=== PATIENT | female | born 1970 | race Caucasian/White ===

== ENCOUNTER 2022-03-26 01:05 | Day surgery (SDC) | payer OTHER, SELFPAY ==
[2022-01-26 13:17] VITALS: BMI 19.3
--- NOTE | 2022-03-15 12:27 | PC.NURSE ---
Completed pre-procedure phone call for rescheduled procedure. Updated patient with new date and times for arrival. Patient denies any changes to health history or medications. No questions at this time.
[2022-03-26 06:35] VITALS: BP 129/83; PULSE 99; RESP 22; TEMP 36.8; O2SAT 97; BMI 19.1
--- NOTE | 2022-03-26 06:45 | P.PNAN_ITS ---
Anes - Initial Pre Proc Eval Procedure: Operation Date: 03/26/22 07:30 Proposed Procedures p Screening Colonoscopy - Torsten Chapman MD Date/Time: 03/26/22 06:45 Surgeon: Torsten Chapman MD Pre Op Diagnosis: neoplasm screening Patient Data Age: 51 Gender: F Height: 1.68 m Weight: 53.6 kg Last Vital Signs Temp 36.8 C 03/26/22 06:35 Pulse 99 03/26/22 06:35 Resp 22 H 03/26/22 06:35 BP 129/83 03/26/22 06:35 Pulse Ox 97 03/26/22 06:35 Allergies Allergy/AdvReac Type Severity Reaction Status Date / Time clindamycin Allergy Unknown Rash Verified 03/26/22 06:33 Home Medications Medication Instructions Recorded Confirmed Type amlodipine 5 mg PO DAILY 01/26/22 01/26/22 History aspirin 81 mg PO DAILY 01/26/22 01/26/22 History isosorbide mononitrate 30 mg PO DAILY 01/26/22 01/26/22 History rosuvastatin 20 mg PO DAILY 01/26/22 01/26/22 History ursodiol 750 mg PO DAILY 01/26/22 01/26/22 History Patient hx anesthesia problems: none Family hx anesthesia problems: none Results Review: All pre-operative results and documents have been reviewed as part of the pre-operative evaluation. FORMERLY [facility], [facility] Past Medical History Medical History (Updated 03/26/22 @ 06:50 by Anibal Matos MD) HTN (hypertension) Hyperlipidemia Social History Social History Living arrangements: with family Anes - Eval Final PreProcedure Day of Procedure 03/26/22 06:45 Patient weight: normal Heart: regular rate and rhythm Lungs: clear to auscultation Airway: Mallampati scale class III, special considerations poor opening and other (h/o difficult intubation) Neurological: alert and oriented Last oral intake: >/= 8 hours ASA classification: II Emergent: no Anesthetic plan: proceed Anesthesia type and monitoring: general GIVS and standard monitoring Results Review: All pre-operative results and documents have been reviewed as part of the pre-operative evaluation. Informed Consent: The patient's anesthetic plan and its attendant risks and benefits were discussed with the patient/family/POA. Questions were solicited and answers provided to the satisfaction of the patient/family/POA.
[2022-03-26] MEDS: LACTATED RINGERS 1,000 ML 150 ML IV CONT (06:50)
--- NOTE | 2022-03-26 07:27 | PM.HPGS ---
History of Present Illness History of Present Illness Consent: Risks, benefits, and alternatives have been discussed and questions answered. Patient agrees to proceed with procedure. Chief complaint: neoplasm screening Narrative: Jeny Mccartney is a 51 year old female referred for colon cancer screening. This is her 1st colonoscopy. Her mother has had a polyp removed but otherwise family history is unremarkable. Review of Systems Review of Systems: All systems reviewed & are unremarkable except as noted in HPI and below PMFSH Past Medical History Medical History HTN (hypertension) Hyperlipidemia Social History Social History Living arrangements: with family Meds Home Medications and Allergies Home Medications Medication Instructions Recorded Confirmed Type amlodipine 5 mg PO DAILY 01/26/22 01/26/22 History aspirin 81 mg PO DAILY 01/26/22 01/26/22 History isosorbide mononitrate 30 mg PO DAILY 01/26/22 01/26/22 History rosuvastatin 20 mg PO DAILY 01/26/22 01/26/22 History ursodiol 750 mg PO DAILY 01/26/22 01/26/22 History Allergies Allergy/AdvReac Type Severity Reaction Status Date / Time clindamycin Allergy Unknown Rash Verified 03/26/22 06:33 Vital Signs Vital Signs - 24 hr 03/26/22 06:35 Temperature 36.8 C Pulse Rate 99 Respiratory Rate 22 H Blood Pressure 129/83 Pulse Oximetry 97 Exam Const: General: alert Orientation/consciousness: patient oriented x3 Resp: Auscultation: clear to auscultation bilaterally Cardio: Rhythm: regular rhythm GI: GI Palp: Yes Soft to palpation and No Tenderness to palpation present (GI) Neuro: General: patient oriented x3 Assessment and Plan Assessment and plan (1) Colon cancer screening: Code(s): Z12.11 - Encounter for screening for malignant neoplasm of colon Status: Acute Assessment and Plan: Colonoscopy with possible biopsy or polypectomy or cautery or injection of substances.
[2022-03-26 07:48] VITALS: BP 116/80; PULSE 76; RESP 14; O2SAT 100
[2022-03-26 07:58] VITALS: BP 115/80; PULSE 76; RESP 20; O2SAT 100
[2022-03-26 08:08] VITALS: BP 129/86; PULSE 72; RESP 16; O2SAT 100
== END 2022-03-26 08:23 | disposition home or self-care (01) ==
PROVIDERS: PCP Internal Medicine; Visit Provider Internal Medicine Gastroenterology
PROC: 0DJD8ZZ Inspection of Lower Intestinal Tract, Via Natural or Artificial Opening Endoscopic (ICD-10-PCS; CPT 45378; principal; 2022-03-26 07:30)
DX: Z12.11 Encounter for screening for malignant neoplasm of colon (principal); I10 Essential (primary) hypertension; E78.5 Hyperlipidemia, unspecified
CPT/HCPCS: 45378; J2704; J7120

== ENCOUNTER 2025-07-05 02:08 | Day surgery (SDC) | payer OTHER, SELFPAY ==
[2025-06-28 09:03] VITALS: BMI 18.6
--- NOTE | 2025-06-28 09:11 | PC.NURSE ---
Report to the Outpatient Waiting Room, entrance under the green pavilion located off [facility], at time _1000_ on date _[id number]_. Planned Procedure Time: _1200_.? Time changes happen often and if your time is changed the preop area will call you the afternoon before. - You and your visitor will be asked to self-screen and do not enter if you have any COVID symptoms. Please call surgeon if you need to reschedule. - A mask is optional within the hospital at this time. Patients may have clear liquids (water, carbonated beverages, clear teas, apple juice) until 3 hours prior to surgery with a maximum of 20 ounces. - No food from midnight until time of surgery and no smoking, or chewing tobacco (or any form of nicotine). No chewing gum, candy or mints. Take only the following medications with a SIP of water on the morning of surgery: __Trelegy, Amlodipine, Isosorbide and Thyroid DO NOT STOP ANY OF YOUR OTHER PRESCRIPTION MEDICATIONS PRIOR TO SURGERY EXCEPT THE FOLLOWING Hold all vitamins and supplements for 3 days per anesthesiologist. Medications to discontinue per physician Date to take last dose Please no make-up, nail tongan, hairspray, perfume, deodorant, or body powder the day of surgery.? No jewelry (including any body piercings) or valuables the day of surgery, leave them at home.? Please take a shower or bath the night before, or the morning of, surgery with an antibacterial soap.? Wear comfortable, loose fitting clothing.? - Jewelry must be removed prior to entering the operating room.? Rings and piercings that are not removed may be cut off. - The hospital will not accept responsibility for valuables.? - Please leave all valuables, including medications, at home the day of surgery. If you are going home after surgery, a licensed vending route driver must drive you home.? - NO public transportation without another adult if you receive anesthesia. - We recommend that an adult stay with you for 24 hours following discharge. - We also recommend that you do not drive, make important decision, drink alcoholic beverages, or take any drugs that were not prescribed by your health care provider for at least 24 hours after your discharge time. Follow any additional instructions given to you from your surgeon. Telephone instructions given to __Amy___and asked if any additional questions and then verbalized understanding. Patient advised to call surgeon office or pre surgery nurse liaison [phone] if any additional questions.
[2025-07-05] VITALS (9 sets, daily range): BP systolic 96–112; BP diastolic 60–72; PULSE 95–106; RESP 13–16; TEMP 36.7–36.9; O2SAT 95–100; BMI 17.6
--- OUTSIDE RECORDS SUMMARY | 2025-07-05 02:10 | XMS_ITS | Encounter Summary ---
Author Organization [facility] Address [address] [place] [address] Care Team Providers Care Hydraulic Miner Name Role Phone Khai Doe MD Primary Care Provider [phone] mDitry Huber MD Unavailable [phone] Reason for Referral * Surgical (Routine) - Closed Specialty Diagnoses / Procedures Referred By Judy paige Referred To Contact Procedures Case request operating room: RADIOFREQUENCY CERVICAL C4-5, L4-5 Ligia Wilkins NP [address] [facility] [address] [place] [address] Phone: tel: [phone] fax: Referral ID Status Reason Start Date Expiration Date Visits Re quested Visits Authorized [id number] Closed 05/14/2022 06/13/2023 1 1 Encounter Details Date Type Department Care Team (Late st Contact Info) Description 05/14/2022 Prep for Procedure [facility] [place] [address] [phone] Ligia Wilkins NP [address] [facility] [address] [place] [phone] (Work) Social History Tobacco Use Types Packs/Day Years Used Date Smoking Tobacco: Never Smokeless Tobacco: Never Alcohol Use Standard Drinks/Week Comments Yes 0 (1 standard drink = 0.6 oz pur e alcohol) socially Comments No Sex and Gender Information Value Date Recorded Sex Assigned at Female 02/11/2025 10:17 AM CDT Legal Sex Female 7:00 PM CDT Gender Identity Not on file Sexual Orientation Not on file COVID-19 Exposure Response Date Recorded In the last 10 days, have yo u been in contact with someone who was confirmed or suspected to have Coronavirus/COVID-19? No / Unsure 05/12/2022 8:13 AM CDT documented as of this encounter Functional Status * RETIRED Are you deaf or do you have serious difficulty hearing Answer Date of Assessment Author Status No 06/12/2021 11:12 AM CDT Acti ve * RETIRED Are you blind or do you have serious difficulty seeing, even when wearing glasses? Answer Date of Assessment Author Status No 06/12/2021 11:12 AM CDT Acti ve * Do you have serious difficulty walking or climbing stairs? Answer Date of Assessment Author Status No 06/12/2021 11:12 AM CDT Juan Jose Childs RN Active * Do you have difficulty dressing or bathing? Answer Date of Assessment Author Status No 06/12/2021 11:12 AM CDT Juan Jose Childs RN Active * Because of a physical, mental, or emotional condition, do you have difficulty doing errands alone such as visiting a doctor's office or shopping? Answer Date of Assessment Author Status No 06/12/2021 11:12 AM CDT Juan Jose Childs RN Active documented as of this encounter Mental Status * Because of a physical, mental, or emotional condition, do you have serious difficulty concentrating, remembering, or making decisions? Answer Entry Date Author Status No 06/12/2021 11:12 AM JOSE ALBERTOT Juan Jose Childs RN Active documented in this encounter Plan of Treatment Scheduled Orders Name Type Priority Associated Diagnoses Order Schedule Case request operating room: RADIOFREQUENCY CERVICAL C4-5, L4-5 Case Request Routine Once for 1 Occurrences starting 05/14/2022 until 05/14/2022 documented as of this encounter Goals Goal Patient Goal Type Associated Problems Recent Progress Patient-Stated? Author Patient will return to prior living situation and remain independent in ADLs upon discharge from hospital General Jaclyn Hall RN documented as of this encounter Visit Diagnoses Not on filedocumented in this encounter Care Teams Hydraulic Miner Relationship Specialty Start Date End Date Khai Doe MD [address] [facility] [address] [place] [address] PCP - General INTERNAL MEDICINE 05/28/21 Dmitry Huber MD 3 [facility] [address] [place] [phone] Consulting Physician CARDIOVASCULAR DISEASE 05/28/21 documented as of this encounter
--- OUTSIDE RECORDS SUMMARY | 2025-07-05 02:10 | XMS_ITS | Encounter Summary ---
Author Organization [facility] Address [address] [place] [address] Phone Care Team Providers Care Lobby Attendant Name Role Phone Khai Doe MD Primary Care Provider John Pool MD Unavailable [phone] Doni Bauman MD Unavailable [phone] Encounter Details Date Type Department Care Team (Late st Contact Info) Description 07/01/2025 Telephone [facility] Cardiology [facility] Medicine 8th [place] [address] [place] [address] Merry Cm Social History Tobacco Use Types Packs/Day Years Used Date Smoking Tobacco: Never Smokeless Tobacco: Never AUDIT-C Answer Date Recorded Q1: How often do you have a drink containing alc ohol? 2-3 times a week 03/05/2021 Q2: How many drinks containi ng alcohol do you have on a typical day when you are drinking? 1 or 2 03/05/2021 Q3: How often do you have si x or more drinks on one occasion? 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 Gender Identity Not on file Sexual Orientation Not on file documented as of this encounter Miscellaneous Notes * Telephone Encounter - Iraida Gutierrez - 07/02/2025 7:50 AM CDT This has been sent to the patient mychart * Telephone Encounter - Merry Cm - 07/01/2025 4:00 PM CDT [facility] PT CALLING TO SEE IF CARD CLEARANCE LETTER CAN BE SENT TO HER THROUGH [facility] documented in this encounter Plan of Treatment Not on file documented as of this encounter Visit Diagnoses Not on filedocumented in this encounter Care Teams Lobby Attendant Relationship Specialty Start Date End Date Khai Doe MD [address] [place] [address] PCP - General 11/29/18 John Pool MD [address] [place] [address] Surgeon Orthopedic Surgery 03/18/21 Doni Bauman MD [address] [place] [address] Referring Physician Cardiology 07/29/21 documented as of this encounter
--- OUTSIDE RECORDS SUMMARY | 2025-07-05 02:10 | XMS_ITS | Encounter Summary ---
Author Organization [facility] Address [address] [place] [address] Care Team Providers Care River Pilot Name Role Phone Khai Doe MD Primary Care Provider [phone] Dmitry Huber MD Unavailable Encounter Details Date Type Department Care Team (Late st Contact Info) Description 05/13/[address] [facility] [place] [address] [phone] Ligia Wilkins NP [address] [facility] [address] [place] [phone] (Work) Social History Tobacco Use Types Packs/Day [...] Assessment Author Status No 06/12/2021 11:12 AM JOSE ALBERTOT Juan Jose Childs RN Active documented as of this encounter Mental Status * Because of a physical, mental, or emotional condition, do you have serious difficulty concentrating, remembering, or making decisions? Answer Entry Date Author Status No 06/12/2021 11:12 AM JOSE ALBERTOT Juan Jose Childs RN Active documented in this encounter Plan of Treatment Not on file documented as of this encounter Goals Goal Patient Goal Type Associated Problems Recent Progress Patient-Stated? Author Patient will return to prior living situation and remain independent in ADLs upon discharge from hospital General No Jaclyn Escoto RN documented as of this encounter Visit Diagnoses Not on filedocumented in this encounter Care Teams River Pilot Relationship Specialty Start Date End Date Khai Doe MD [address] [place] [address] [address] [place] [address] PCP - General INTERNAL MEDICINE 05/28/21 Dmitry Huber MD [address] [facility] [address] [place] [phone] Consulting Physician CARDIOVASCULAR DISEASE 05/28/21 documented as of this encounter
--- OUTSIDE RECORDS SUMMARY | 2025-07-05 02:10 | XMS_ITS | Clinical Summary ---
Author Organization [facility] Address [address] [place] [address] Care Team Providers Care Cement Finisher Helper Name Role Phone Khai Doe MD Primary Care Provider [phone] John Pool MD Unavailable [phone] Doni Bauman MD Unavailable [phone] Allergies Active Allergy Reactions Criticality Noted Date Comments Clindamycin Hives,Rash Medium Medications lamoTRIgine (LaMICtal) 100 mg tabletIndication s:Depression associated with Bipolar Disorder Take 1 tablet (100 mg total) by mouth nightly [address] (CYMBALTA) 60 mg capsule Take by mouth daily 2 Active progesterone (PROMETRIUM) 100 mg capsule Take 1 capsule (100 mg total) by mouth daily Active cholecalciferol (VITAMIN D-3) 2000 unit capsule Take 1 capsule (2,000 Units total) by mouth every morning Active Trelegy Ellipta 200-62.5-25 mcg inhaler INHALE 1 PUFF EVERY DAY BY INHALATION ROUTE 3 Active testosterone micronized, bulk, 100 % powder 2 Active estradioL (VAGIFEM) 10 mcg tablet Insert 1 tablet (10 mcg total) into the vagina daily Active esterified estrogens 1.25 mg tablet 1 tablet (1.25 mg total) Unsure of current dose Active rosuvastatin (CRESTOR) 20 mg tabletIndication s:Acute myocardial infarction, unspecified TAKE 1 TABLET BY MOUTH EVERY DAY 90 tablet 3 3 Active Addyi 100 mg tablet Take 1 tablet by mouth nightly Active hydroxychloroqui ne (PLAQUENIL) 200 mg tablet TAKE 1 TABLET BY MOUTH EVERY DAY FOR 30 DAYS 4 Active [employer] Thyroid 15 mg tablet Active spironolactone (ALDACTONE) 50 mg tablet 4 Active aspirin 81 mg enteric coated tablet Take 1 tablet (81 mg total) by mouth daily 4 Active ezetimibe (ZETIA) 10 mg tablet Take 1 tablet (10 mg total) by mouth daily 90 tablet 3 4 Active ursodioL (RADHIKA) 250 mg tabletIndication s:Primary biliary cholangitis (HCC) TAKE 3 TABLETS BY MOUTH EVERY DAY AT NIGHT 90 tablet 11 4 Active isosorbide mononitrate ER (IMDUR) 30 mg 24 hr tablet TAKE 1 TABLET BY MOUTH EVERY DAY 90 tablet 3 5 Active amLODIPine (NORVASC) 5 mg tablet Take 1 tablet (5 mg total) by mouth daily 90 tablet 3 5 Active nitroglycerin (NITROSTAT) 0.[address] 1 TABLET UNDER TONGUE EVERY 5 MINS, UP TO 3 DOSES NEEDED FOR CHEST PAIN 150 tablet 5 Active Active Problems Problem Noted Date Diagnosed Date Vasospastic angina 09/05/2022 Elevated coronary artery calcium score 2 COVID-19 11/13/2021 Mild obstructive sleep apnea 07/29/2021 Overview (07/29/2021): 07/28/2021 sleep study: 3% AHI 7.2/hr, 4% AHi 2.4/hour, 3% supine AHI 11.6, 3% nonsupine AHI 2.6, 3% REM AHI 21.5/hr, 3% nonREM AHI 3.7/hour. SpO2 simon 89%. 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 She understands the importance of long-term bile acid therapy. Stopping the medicine would likely result in an increase in liver biochemistries, reflective of increasing hepatic inflammation. She will return every 2 years or when clinically indicated. 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 This has kept her liver biochemistries in the normal range. A normal alkaline phosphatase has been associated with excellent long-term survival. I will recheck her labs within the next few weeks. She will return on an annual basis or when clinically indicated. Assessment & Plan (10/08/2019 6:44 PM CEMENT TRUCK DRIVER): Controlled with bile acid therapy. She understands the importance of continuing this medicine indefinitely. As long as the alkaline phosphatase is normal or near normal, this should prevent progressive hepatic fibrosis and liver failure. I will check labs today. I have asked her to return on an annual basis or when clinically indicated. Encounters Date Type Department Care Team Description 07/01/2025 Telephone [facility] Cardiology [address] [place] [address] [place] [address] CmDevang llaneson 06/27/2025 Telephone [facility] Cardiology [address] [place] [address] [place] [address] Doni Bauman MD from Last 3 Months Surgical History Surgery Date Site/Laterality Comments [place] BIOPSY LIVER NEEDLE PERCUTANEOUS Biopsy Of Liver - (Added by TW Conv) [place] SEPTOPLASTY/SUBMUCOUS RESECJ W/WO CARTILAGE GRF Septoplasty - (Added by TW Conv) [place] ENLARGE BREAST Breast Surgery Enlargement Procedure Bilateral - (Added by TW Conv) AUGMENTATION MAMMAPLASTY THUMB SURGERY 11/28/2015 - 11/27/2016 Right hardware BUNIONECTOMY 11/28/2002 - 11/27/2003 Left Medical History Medical History Date Comments 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 - (Added by TW Conv) Dyslipidemia Depression Asthma exercise induced Anticardiolipin antibody positive Allergic rhinitis Primary biliary cirrhosis doing well Covid-19 11/13/2021 Family History Medical History Relation Name Comments Diabetes type II Maternal Grandmother Fam socorro history of type 2 diabetes mellitus - (Added by TW Conv) Anesthesia problems Neg Hx Relation Name Status Comments Maternal Grandmother Social History Tobacco Use Types Packs/Day Years Used Date Smoking Tobacco: Never Smokeless Tobacco: Never Tobacco Cessation:Counseling Given: Not Answered AUDIT-C Answer Date Recorded Q1: How often [...] on file Legal Sex Female 7:36 PM CEMENT TRUCK DRIVER Gender Identity Not on file Sexual Orientation Not on file Obstetrics History Last Filed Vital Signs Vital Sign Reading Time Taken Comments Blood Pressure 120/82 10/23/2024 11:07 AM CEMENT TRUCK DRIVER Pulse 84 09/17/2024 10:51 AM CDT Temperature 36.6 C (97.8 F) 09/17/2024 10:51 AM CDT Respiratory Rate 14 11/13/2021 3:45 PM CEMENT TRUCK DRIVER Oxygen Saturation 99% 09/17/2024 10:51 AM CDT Inhaled Oxygen Concentration - - Weight 51.7 kg (114 lb) 10/23/2024 11:07 AM CEMENT TRUCK DRIVER Height 167.6 cm (5' 6) 09/17/2024 10:51 AM CDT Body Mass Index 18.4 09/17/2024 10:51 AM CDT Plan of Treatment Health Maintenance Due Date Last Done Comments Colon Cancer Screening-Colonoscopy 1970 Depression Screening 1970 Hepatitis C Screening 1970 Pneumococcal vaccine <65 (1 of 2 - PCV) 1989 Zoster Vaccine (2 of 2) 10/17/2020 08/22/2020 Covid-19 Vaccine (3 - Modern a risk series) 02/09/2021 01/12/2021, 12/15/2020 Influenza Vaccine (#1) 2025 2, 09/21/2020, 08/22/2020, Additional history exists Breast Cancer Screening-Mammogram 08/21/2025 08/21/2024, 07/07/2023, 04/09/2022, Additional history exists Regular Well Visit/Exam 18-64 10/01/2025 10/01/2024 Cervical Cancer Screening 10/01/2027 10/01/2024 DTaP/Tdap/Td Vaccine (6 - Td or Tdap) 08/22/2030 08/22/2020, 11/01/2019, 04/16/2019, Additional history exists Medical Devices Implanted Type Area Terminal Gauger Device Identifier Shelf Expiration Date Model / Serial / Lot Ethicon Endo Surgery Ds25 Ethi-Pack 18in Monofilament Precut Ties 1 Suture Nonabsorbable - [id number] Implanted:Qty: 1 on 03/18/2021 by John Pool MD at [facility] [place] Left: Thumb [employer]icon Endo Surgery DS25 / / [employer] [id number] [place] .054in 9in Smooth [place]car [place] One End Orthopedic Wire - [id number] Implanted:Qty: 2 on 03/18/2021 by John Pool MD at [facility] [place] Left: Thumb [employer] [id number] / / Procedures Procedure Name Priority Date/Time Associated Diagnosis Comments PAP AND HPV, REFLEX TO HPV GENOTYPES Routine 10/01/2024 5:23 PM CEMENT TRUCK DRIVER Cervical cancer screening SCREENING MAMMOGRAM BILATERAL W KOLTON W IMPLANTS Schedule Routine, Read Routine (OP Routine) 08/21/2024 4:27 PM CDT Screening mammogram, encounter for from Last 3 Months or Most Recently Relevant to Health Maintenance Results * Pap and HPV, reflex to HPV Genotypes (10/01/2024 5:23 PM CEMENT TRUCK DRIVER) Clinical indication Comment [facility] - 01 Comment: NEGATIVE FOR INTRAEPITHELIAL LESION OR MALIGNANCY. FUNGAL ORGANISMS MORPHOLOGICALLY CONSISTENT WITH OMAIRA SPECIES ARE PRESENT. Specimen adequacy: Comment [facility] - 01 Comment: Satisfactory for evaluation. Endocervical and/or squamous metaplastic cells (endocervical component) are present. Clinician provided ICD10 Comment [facility] - 01 Comment:Z12.4 Performed by Comment [facility] - 01 Comment:Violette Carcamo, [employer] hnologist (ASCP) . . [facility] - 01 Note: Comment [facility] - 01 Comment: The Pap smear is a screening test designed to aid in the detection of premalignant and malignant conditions of the uterine cervix. It is not a diagnostic procedure and should not be used as the sole means of detecting cervical cancer. Both false-positive and false-negative reports do occur. Test methodology Comment [facility] - 01 Comment: This liquid based ThinPrep(R) pap test was screened with the use of an image guided system. HPV Aptima Negative Negative [facility] 02 Comment: This nucleic acid amplification test detects fourteen high-risk HPV types (16,18,31,33,35,39,45,51,52,56,58,59,66,68) without differentiation. HPV Genotype Reflex Comment [facility] - 01 Comment:Criteria not met, HP V Genotype not performed. Thin prep-Endocervical 10/01/2024 5:23 PM CEMENT TRUCK DRIVER 10/01/2024 Narrative [facility] - 10/08/2024 12:09 PM CEMENT TRUCK DRIVER Performed at: 01 - [address] [id number] Auction Assistant: Serena Baldwin MD, Phone: [phone] Performed at: 02 - [address] [id number] Auction Assistant: Serena Baldwin MD, Phone: [phone] Specimen Comment: No. of containers..01 ThinPrep Vial us Courtney Cash MD LAB CYTOLOGY ORDERABLES Final [facility] - 01 [facility] 02 * Screening Mammogram Bilateral W [place] W Implants (08/21/2024 4:27 PM CDT) Anatomical Region Laterality Modality Breast Bilateral Mammography Narrative 08/21/2024 5:11 PM CDT Examination: Screening Mammogram Bilateral W [place] W Implants: 08/21/24 Clinical: Screening mammogram, encounter for. Prior Study Comparisons: Comparison was made to the prior available relevant studies at the time of interpretation. Findings: Screening Mammogram Bilateral W [place] W Implants Bilateral No significant masses, malignant type calcifications, skin thickening, nipple retraction, or significant lymphadenopathy is noted in either breast. Computer Aided Detection was utilized for the interpretation of this study. The breasts are heterogeneously dense, which may obscure small masses. The patient will be notified of results by letter. Impression: BI-RADS ATLAS category (overall): 2 - Benign There is no mammographic evidence of malignancy. Routine Screening Mammogram in 1 Yr is recommended for bilateral Overall Assessment: 2 - Benign us Self Screening Mammogram IMG MAMMO PROCEDURES Fi nal Result from Last 3 Months or Most Recently Relevant to [place] [address] [facility] CHOICE PLUS [facility] H[facility]/PPO Address: [address] [address] [place] [address] [employer] OPEN ACCESS [employer] [facility] H[facility]/PPO Address[id number] [place] [address] [place] [address] [facility] CHOICE PLUS [facility] H[facility]/PPO Address: [address] [address] [place] [address] [place] [address] [facility] CHOICE PLUS [facility] H[facility]/PPO Address: [address] [address] [place] [address] [place] [address] [facility] CHOICE PLUS [facility] H[facility]/PPO Address: [address] [address] [place] [address] Advance Directives For more information, please contact: [phone] * Full Code (Latest Code Status on File) Date Activated Date Inactivated Comments 03/18/2021 11:30 AM 03/18/2021 5:17 PM Care Teams Cement Finisher Helper Relationship Specialty Start Date End Date Khai Doe MD [address] [place] [address] PCP - General 11/29/18 John Pool MD [address] [place] [address] Surgeon Orthopedic Surgery 03/18/21 Doni Bauman MD [address] [place] [address] Referring Physician Cardiology 07/29/21
--- OUTSIDE RECORDS SUMMARY | 2025-07-05 02:11 | XMS_ITS | Encounter Summary ---
Author Organization [facility] Address 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
--- OUTSIDE RECORDS SUMMARY | 2025-07-05 02:11 | XMS_ITS | Encounter Summary ---
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 GER APPLE documented in this encounter Plan of Treatment Not on file documented as of this encounter Procedures Procedure Name Priority Date/Time Associated Diagnosis Comments SCAN - LABS 09/14/2023 documented in this encounter Results * SCAN - LABS (09/14/2023) us Provider Scanning Final Result documented in this encounter Visit Diagnoses Not on filedocumented in this encounter Care Teams Paddock Judge Relationship Specialty Start Date End Date Khai Doe MD [address] [place] [address] PCP - General 11/29/18 John Pool MD [address] [place] [address] Surgeon Orthopedic Surgery 03/18/21 Doni Bauman MD [address] [place] [address] Referring Physician Cardiology 07/29/21 documented as of this encounter
--- OUTSIDE RECORDS SUMMARY | 2025-07-05 02:11 | XMS_ITS | Encounter Summary ---
Author Organization [facility] Address [address] [place] [address] Care Team Providers Care Milk Hauler Name Role Phone Francesco Alcantara MD Primary Care Provider Unavaila ble Encounter Details Date Type Department Care Team (Late st Contact Info) Description 04/08/2005 Outpatient Historical [facility] Internal Medicine 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
--- OUTSIDE RECORDS SUMMARY | 2025-07-05 02:11 | XMS_ITS | Encounter Summary ---
Author Organization [facility] Address [address] [place] [address] Phone Care Team Providers Care Commercial Sales Consultant Name Role Phone Khai Doe MD Primary Care Provider [phone] John Pool MD Unavailable [phone] Doni Bauman MD Unavailable [phone] Encounter Details Date Type Department Care Team (Latest Contact Info) Description 07/02/2021 Orders Only [facility] Scanning, Provider Social History Tobacco Use [...] on file Legal Sex Female 7:36 PM HIDE AND SKIN 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 Gender Identity Not on file Sexual Orientation Not on file documented as of this encounter Plan of Treatment Not on file documented as of this encounter Procedures Procedure Name Priority Date/Time Associated Diagnosis Comments CARDIOLOGY DOCUMENT SCAN 07/02/2021 documented in this encounter Results * SCAN - CARDIOLOGY (07/02/2021) Anatomical Region Laterality Modality Other us Provider Scanning [facility] PROCEDURES Final Result documented in this encounter Visit Diagnoses Not on filedocumented in this encounter Care Teams Commercial Sales Consultant Relationship Specialty Start Date End Date Khai Doe MD [address] [place] [address] PCP - General 11/29/18 John Pool MD [address] [place] [address] Surgeon Orthopedic Surgery 03/18/21 Doni Bauman MD [address] [place] [address] Referring Physician Cardiology 07/29/21 documented as of this encounter
--- OUTSIDE RECORDS SUMMARY | 2025-07-05 02:11 | XMS_ITS | Clinical Summary ---
Author Organization [facility] Address [address] [place] [address] Care Team Providers Care Administrative Technician Name Role Phone Khai Doe MD Primary Care Provider [phone] Source Comments [facility],non-owned Affiliates and Associated Physician Practices is amultiple site organization consisting of ambulatory clinics and hospital sitesin [place], [place]. This disclosure is being madepursuant to the Care Everywhere program and may not contain all information available regarding this patient. Last updated 18.[facility] Allergies Active Allergy Reactions Criticality Noted Date Comments Clindamycin Rash Medium 03/20/2019 Medications * Be aware that medications may not be up to date on this document. Alwaysverify current medications with the patient. DENTA 5000 PLUS 1.1 % BRUSH ON TEETH 1-2 TIMES A DAY 5 9 Active ursodiol (ACTIGALL) 250 MG tablet 9 Active amLODIPine (Norvasc) 5 MG tablet Take 1 (one) tablet by mouth once daily 5 Active isosorbide dinitrate (Isordil) 30 MG tablet Take 1 (one) tablet by mouth 2 times daily Active DULoxetine (Cymbalta) 30 MG capsule Take 1 (one) capsule by mouth once daily 4 Active D2000 Ultra Strength 50 MCG (1999 UT) capsule Take 1 (one) capsule by mouth every morning Active Progesterone 100 MG capsule Take 1 (one) capsule by mouth once daily Active rosuvastatin (Crestor) 20 MG tablet Take 1 (one) tablet by mouth once daily Active spironolactone (Aldactone) 50 MG tablet Take 1 (one) tablet by mouth once daily Active testosterone 0.1% CREA compd cream Apply to affected area once daily Active methylPREDNISo lone (Medrol Dosepak) 4 MG tablet Take by mouth as directed Take as directed by mouth per package instructions. Begin medication the day after surgery 21 tablet 5 Active promethazine (Phenergan) 12.5 MG tablet Take 1 (one) tablet by mouth every 4 hours as needed for Nausea/Vomiting 16 tablet 5 Active Additional Information Patient not taking.Reason: Other (hasnt started), Reported on 06/07/2025 oxyCODONE-acet aminophen (Percocet) 5-325 MG tabletIndicati ons:Facial rhytids Take 1 (one) tablet by mouth every 4 hours as needed for Pain 24 tablet 5 Active Additional Information Patient not taking.Reason: Other (hasnt started), Reported on 06/07/2025 albuterol HFA (Proventil; Ventolin; Proair) 108 (90 Base) MCG/ACT inhaler Inhale 2 (two) puffs by mouth every 6 hours as needed Active estradiol (Estrace) 0.1 MG/GM vaginal cream Insert 1 g into the vagina Two times a week Active ezetimibe (Zetia) 10 MG tablet Take 1 (one) tablet by mouth once daily Active hydroxychloroq uine (Plaquenil) 200 MG tablet Take 1 (one) tablet by mouth once daily Active nitroGLYCERIN (Nitrostat) 0.4 MG tablet Dissolve 1 (one) tablet under the tongue as needed 5 Active PICTURE ENLARGER Thyroid 15 MG tablet Take 1 (one) tablet by mouth daily before breakfast Active omeprazole (PriLOSEC) 20 MG capsule Take 1 (one) capsule by mouth daily before breakfast 5 Active Fluticasone-Sa lmeterol (ADVAIR HFA IN) as needed 06/07/20 25 Discontin ued(List Clean-Up) omeprazole (PRILOSEC) 40 MG capsule Take 1 (one) capsule by mouth once daily 1 9 06/07/20 25 Discontin ued(List Clean-Up) sertraline (ZOLOFT) 100 MG tablet Take 1 (one) tablet by mouth once daily 11 9 06/07/20 25 Discontin ued(List Clean-Up) Encounters Date Type Department Care Team Description 06/07/2025 11:15 AM CDT Cosmetic Visit [facility] - ENT [address] [place] [id number] Gilles Dewey MD from Last 3 Months Immunizations Immunization Administration Dates Next Due HEP A VACCINE, ADULT 10/07/2005,04/08/2005,11/28 HEP B VACCINE, ADULT 3 DOSE 11/28/1992 INFLUENZA VACCINE 10/09/2019,08/17/2017,09/28/20 16 INFLUENZA VACCINE, CELL CULT URE, QUADR. (FLUCELVAX QUADRIVALENT; 6MO+), 0.5 ML (CCIIV4) 09/21/2020 INFLUENZA VACCINE, QUADR. (F LUZONE; FLULAVAL; FLUARIX; AFLURIA QUADRIVALENT; 6MO+), 0.5 ML (IIV4) 12/05/2021,10/09/2019 Social History Tobacco Use Types Packs/Day Years Used Date Smoking Tobacco: Never Passive Smoke Exposure: Never Smokeless Tobacco: Never Alcohol Use Standard Drinks/Week Comments Yes 1 (1 standard drink = 0.6 oz pur e alcohol) Comments No Sex and Gender Information Value Date Recorded Sex Assigned at Not on file Legal Sex Female 3:20 PM CDT Gender Identity Not on file Sexual Orientation Not on file Last Filed Vital Signs Vital Sign Reading Time Taken Comments Blood Pressure 111/72 12/14/2024 11:05 AM PIPE ASSEMBLY 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 Pulse 89 12/14/2024 11:05 AM PIPE ASSEMBLY WORKER Temperature - - Respiratory Rate - - Oxygen Saturation 99% 12/14/2024 11:05 AM PIPE ASSEMBLY WORKER Inhaled Oxygen Concentration - - Weight 49 kg (108 lb) 12/14/2024 11:05 AM PIPE ASSEMBLY WORKER Height - - Body Mass Index - - Plan of Treatment Health Maintenance Due Date Last Done Comments COLOGUARD (AGES 45-75) - COLON CA SCREENING 1970 COLON MONITORING 1970 COLONOSCOPY - COLON CA SCREENING 1970 CT COLONOGRAPHY - COLON CA SCREENING 1970 Colorectal Cancer Screening 1970 FIT - COLON CA SCREENING 1970 FLEX SIG - COLON CA SCREENING 1970 HIV SCREENING 1985 HEPATITIS C SCREENING 11/24/1988 DTAP/TDAP/TD VACCINES (1 - Tdap) 1989 PAP SMEAR 1991 HEPATITIS B VACCINE (2 of 3 - 19+ 3-dose series) 12/26/1992 11/28/1992 PNEUMOCOCCAL VACCINE 50+ (1 of 1 - PCV) 2020 ZOSTER VACCINE (1 of 2) 2020 COVID-19 VACCINE (3 - 2023- season) 2024 01/12/2021, 12/15/2020 DEPRESSION SCREENING 11/28/2024 INFLUENZA VACCINE (#1) 2025 , 09/21/2020, 10/09/2019, Additional history exists MAMMOGRAM 08/21/2026 08/21/2024, 07/30, 07/07/2023, Additional history exists HIB VACCINE Aged Out No longer eligi ble based on patient's age to complete this topic HPV VACCINE Aged Out No longer eligi ble based on patient's age to complete this topic MENINGOCOCCAL (Group B) VACCINE SHARED DECISION-MAKING Aged Out No longer eligible based on patient's age to complete this topic MENINGOCOCCAL GROUPS A/C/Y/W VACCINE Aged Out No longer eligible based on patient's age to complete this topic Care Teams Administrative Technician Relationship Specialty Start Date End Date Khai Doe MD [address] [place] [address] [address] [place] [address] PCP - General Internal Medicine 06/07/25
--- OUTSIDE RECORDS SUMMARY | 2025-07-05 02:11 | XMS_ITS | Encounter Summary ---
Author Organization [facility] Care Team Providers Care Content Coordinator Name Role Phone Khai Doe MD Primary Care Provider [phone] Khai Doe MD Primary Care Provider [phone] John Pool MD Unavailable [phone] Doni Bauman MD Unavailable [phone] Encounter Details Date Type Department Care Team (Latest Contact Info) Description 02/11/2016 Orders Only [facility] CLINCON[facility] ProviderXiomara MD [address] [place] [address] Social History Tobacco Use Types Packs/Day Years Used Date Smoking Tobacco: Never Assessed Comments Unknown Sex and Gender Information Value Date Recorded Sex Assigned at Not on file 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 us Historical Provider Final Res ult documented in this encounter Visit Diagnoses Not on filedocumented in this encounter Care Teams Content Coordinator Relationship Specialty Start Date End Date Khai Doe MD [address] [place] [address] PCP - General 06/08/17 11/28/18 Khai Doe MD [address] [place] [address] PCP - General 11/29/18 John Pool MD [address] [place] [address] Surgeon Orthopedic Surgery 03/18/21 Doni Bauman MD [address] [place] [address] Referring Physician Cardiology 07/29/21 documented as of this encounter
--- OUTSIDE RECORDS SUMMARY | 2025-07-05 02:11 | XMS_ITS | Encounter Summary ---
Author Organization [facility] Address [address] [place] [address] Care Team Providers Care Poultry Farm Supervisor Name Role Phone Francesco Alcantara MD Primary Care Provider Unavaila ble Encounter Details Date Type Department Care Team (Late st Contact Info) Description 12/17/2005 [facility] 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
--- OUTSIDE RECORDS SUMMARY | 2025-07-05 02:11 | XMS_ITS | Encounter Summary ---
Author Organization [facility] Address [address] [place] [address] Care Team Providers Care Cop Examiner Name Role Phone Khai Doe MD Primary Care Provider [phone] Dmitry Huber MD Unavailable [phone] Reason for Referral * Surgical (Routine) - Closed Specialty Diagnoses / Procedures Referred By Judy paige Referred To Contact Procedures Case request operating room: INJECTION FACET JOINT C4-5, 5-6 Ligia Wilkins NP [address] [facility] [address] [place] [address] Phone: tel: [phone] fax: Referral ID Status Reason Start Date Expiration Date Visits Re quested Visits Authorized [id number] Closed 04/22/2022 05/23/2023 1 1 Encounter Details Date Type Department Care Team (Late st Contact Info) Description 04/22/2022 Prep for Procedure [facility] [place] [address] [id number] Ligia Wilkins NP [address] [facility] [address] [place] [phone] (Work) Social History Tobacco Use Types Packs/Day [...] suspected to have Coronavirus/COVID-19? No / Unsure 04/21/2022 10:59 AM CDT documented as of this encounter [...] Scheduled Orders Name Type Priority Associated Diagnoses Orde r Schedule Case request operating room: INJECTION FACET JOINT C4-5, 5-6 Case Request Routine Once for 1 Occur renlucy starting 04/22/2022 until 04/22/2022 documented as of this encounter Goals Goal Patient Goal Type Associated Problems Recent Progress Patient-Stated? Author Patient will return to prior living situation and remain independent in ADLs upon discharge from hospital General No Heidke, Jaclyn M, RN documented as of this encounter Visit Diagnoses Not on filedocumented in this encounter Care Teams Cop Examiner Relationship Specialty Start Date End Date Khai Doe MD [address] [facility] [address] [place] [address] PCP - General INTERNAL MEDICINE 05/28/21 Dmitry Huber MD 3 [facility] [address] [place] [phone] Consulting Physician CARDIOVASCULAR DISEASE 05/28/21 documented as of this encounter
--- OUTSIDE RECORDS SUMMARY | 2025-07-05 02:11 | XMS_ITS | Encounter Summary ---
Author Organization [facility] Address [address] [place] [address] Phone Care Team Providers Care Dobby Loom Weaver Name Role Phone Khai Doe MD Primary Care Provider [phone] John Pool MD Unavailable [phone] Doni Bauman MD Unavailable [phone] Encounter Details Date Type Department Care Team (Latest Contact Info) Description 02/23/2021 Orders Only [facility] Scanning, Provider Social History Tobacco Use Types Packs/Day Years Used Date Smoking Tobacco: Never Smokeless Tobacco: Never Comments Unknown Sex and Gender Information Value Date Recorded Sex Assigned at Not on file 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 Gender Identity Not on file Sexual Orientation Not on file documented as of this encounter Plan of Treatment Not on file documented as of this encounter Procedures Procedure Name Priority Date/Time Associated Diagnosis Comments SCAN - RADIOLOGY/IMAGING 02/23/2021 documented in this encounter Results * SCAN - RADIOLOGY/IMAGING (02/23/2021) Anatomical Region Laterality Modality Other us Provider Scanning Final Result documented in this encounter Visit Diagnoses Not on filedocumented in this encounter Care Teams Dobby Loom Weaver Relationship Specialty Start Date End Date Khai Doe MD [address] [facility] [address] [place] [address] PCP - General 11/29/18 John Pool MD [address] [facility] [address] [place] [address] Surgeon Orthopedic Surgery 03/18/21 Doni Bauman MD [address] [facility] [address] [place] [address] Referring Physician Cardiology 07/29/21 documented as of this encounter
--- OUTSIDE RECORDS SUMMARY | 2025-07-05 02:11 | XMS_ITS | Encounter Summary ---
Author Organization [facility] Address 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 Gender Identity Not on file Sexual Orientation Not on file documented as of this encounter Plan of Treatment Not on file documented as of this encounter Procedures Procedure Name Priority Date/Time Associated Diagnosis Comments GLIADIN ABS IGG/IGA Routine 03/16/2005 4 :35 PM CDT TRANSGLUTAMINASE IGA ANTIBODY Routine 03/16/2005 4:35 PM CDT ANGIOTENSIN CONVERTING ENZYME Routine 03/16/2005 4:35 PM CDT TSH Routine 03/16/2005 4:35 PM CDT IGA Routine 03/16/2005 4:35 PM CDT documented in this encounter Results * (ABNORMAL) GLIADIN ABS IGG/IGA (03/16/2005 4:35 PM CDT) GLIADIN IGG AB 69(H) <11 U/mL INTER FACE SYSTEM Comment: Reference Range: <11 U/mL Negative 11-17 U/mL Equivocal >17 U/mL Positive GLIADIN IGA AB 3 <11 U/mL INTER FACE SYSTEM Comment: Reference Range: <11 U/mL Negative 11-17 U/mL Equivocal >17 U/mL Positive Lab test performed by: [facility] [address] SEBASTIAN PICHARDO MD 03/16/2005 4:35 PM CDT Carlos Baptiste MD CHEMISTRY ORDERABLES Fin al Result Performing Organization Address [facility] Phone Number INTERFACE SYSTEM Refer to clinic/hospital department * TRANSGLUTAMINASE IGA ANTIBODY (03/16/2005 4:35 PM CDT) TRANSGLUTAMINASE IGA AB <3 <5 U/mL INTERFACE SYSTEM Comment: Reference range: <5 U/mL Negative 5-8 U/mL Equivocal >8 U/mL Positive Lab test performed by: [facility] [address] SEBASTIAN PICHARDO MD 03/16/2005 4:35 PM CDT Carlos Baptiste MD CHEMISTRY ORDERABLES Fin al Result Performing Organization Address [facility] Phone Number INTERFACE SYSTEM Refer to clinic/hospital department * ANGIOTENSIN CONVERTING ENZYME (03/16/2005 4:35 PM CDT) ANGIOTENSIN CONVERTING ENZYME 30 9 - 67 U/L INTERFACE SYSTEM Comment: Lab test performed by: [facility] [place] [address] AUSTEN LEGER MD 03/16/2005 4:35 PM CDT Carlos Baptiste MD CHEMISTRY ORDERABLES Fin al Result Performing Organization Address [facility]/State/ZIP Co de Phone Number INTERFACE SYSTEM Refer to clinic/hospital department * IGA (03/16/2005 4:35 PM CDT) IGA 111.5 83.0 - 336.0 mg/dL INTERFACE SYSTEM 03/16/2005 4:35 PM CDT Carlos Baptiste MD CHEMISTRY ORDERABLES Fin al Result Performing Organization Address City/[facility] de Phone Number INTERFACE SYSTEM Refer to clinic/hospital department * TSH (03/16/2005 4:35 PM CDT) TSH 2.02 0.27 - 4.20 uU/mL INTERFACE SYSTEM 03/16/2005 4:35 PM CDT Carlos Baptiste MD CHEMISTRY ORDERABLES Fin al Result Performing Organization Address [facility] Phone Number INTERFACE SYSTEM Refer to clinic/hospital department documented in this encounter Visit Diagnoses Diagnosis Nonspecific elevation of levels of transaminase or lactic acid dehydrogenase (LDH)- Primary documented in this encounter Care Teams Imaging Center Manager Relationship Specialty Start Date End Date Francesco Alcantara MD PCP - General 12/08/09 documented as of this encounter
--- OUTSIDE RECORDS SUMMARY | 2025-07-05 02:11 | XMS_ITS | Encounter Summary ---
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 Gender Identity Not on file Sexual Orientation Not on file documented as of this encounter Plan of Treatment Not on file documented as of this encounter Procedures Procedure Name Priority Date/Time Associated Diagnosis Comments CARDIOLOGY DOCUMENT SCAN 06/11/2021 documented in this encounter Results * SCAN - CARDIOLOGY (06/11/2021) Anatomical Region Laterality Modality Other us Provider Scanning CV CARDIAC SERVICES PROCEDURES Final Result documented in this encounter Visit Diagnoses Not on filedocumented in this encounter Care Teams Fraud Examiner Relationship Specialty Start Date End Date Khai Doe MD [address] [place] [address] PCP - General 11/29/18 John Pool MD [address] [place] [address] Surgeon Orthopedic Surgery 03/18/21 Doni Bauman MD [address] [place] [address] Referring Physician Cardiology 07/29/21 documented as of this encounter
--- OUTSIDE RECORDS SUMMARY | 2025-07-05 02:11 | XMS_ITS | Encounter Summary ---
Author Organization [facility] Address 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 Reji Crowe MD NO ADDRESS ON FILE Carlos Baptiste MD [address] [place] [phone] CHOLANGITIS (CMS/HCC) (Primary Dx) Social History Tobacco Use Types Packs/Day Years Used Date Smoking Tobacco: Never Assessed Comments Unknown Sex and Gender Information Value Date Recorded Sex Assigned at Not on file Legal Sex Female 4:20 AM MATERIAL MAN Gender Identity Not on file Sexual Orientation Not on file documented as of this encounter Plan of Treatment Not on file documented as of this encounter Procedures Procedure Name Priority Date/Time Associated Diagnosis Comments PT AND APTT Routine 03/10/2005 6:00 AM CDT PLATELET COUNT Routine 03/10/2005 6:00 AM CDT documented in this encounter Results * PLATELET COUNT (03/10/2005 6:00 AM CDT) PLATELETS 256 140 - 350 K/uL INTERFACE SYSTEM MPV 10.0 9.3 - 12.4 fL INTERFACE SYSTEM 03/10/2005 6:00 AM CDT Carlos Baptiste MD HEMATOLOGY ORDERABLES Fi nal Result Performing Organization Address [facility] Phone Number INTERFACE SYSTEM Refer to clinic/hospital department * (ABNORMAL) PT AND APTT (03/10/2005 6:00 AM CDT) PROTIME 13.2 12.9 - 15.7 Seconds INTERFACE SYSTEM INR 0.9 0.9 - 1.1 INTERFACE SYSTEM Comment: INR Therapeutic Range: Adult: 2.0 - 3.0 for pulmonary embolism or prophylaxis against venous thrombosis or systemic embolization. 2.0 - 3.0 for patients with tissue heart valves. 3.0 - 4.5 for patients with mechanical heart valves. Pediatric (12 years and under): 1.5 - 3.0 Although the target range in children is not well established, INR values of 1.5 - 3.0 are recommended for most patients. Higher values have been used in children with prosthetic cardiac valves and hereditary clotting disorders. (<3 days) therapeutic ranges have not been established. PTT 35.4(H) 25.0 - 35.0 Seconds INTERFACE SYSTEM Comment: PTT Therapeutic Range: Heparin Level PTT (seconds) <0.10 units/mL <45 0.10 - 0.30 units/mL 45 - 65 0.30 - 0.70 units/mL* 65 - 106* 0.70 - 1.00 units/mL 106 - 137 *corresponds to therapeutic range for unfractionated heparin 03/10/2005 6:00 AM CDT Carlos Baptiste MD HEMATOLOGY ORDERABLES Fi nal Result Performing Organization Address [facility] Phone Number INTERFACE SYSTEM Refer to clinic/hospital department documented in this encounter Visit Diagnoses Diagnosis Cholangitis (CMS/HCC)- Primary Cholangitis documented in this encounter Care Teams Intelligence Operations Specialist Relationship Specialty Start Date End Date Francesco Alcantara MD PCP - General 12/08/09 documented as of this encounter
--- OUTSIDE RECORDS SUMMARY | 2025-07-05 02:11 | XMS_ITS | Encounter Summary ---
Author Organization [facility] Address [address] [place] [address] Care Team Providers Care Shrimp Header Name Role Phone Khai Doe MD Primary Care Provider [phone] Dmitry Huber MD Unavailable [phone] Encounter Details Date Type Department Care Team (Late st Contact Info) Description 11/16/2022 Prep for Procedure [facility] [place] [address] [id number] Ligia Wilikns NP [address] [facility] [address] [place] [phone] [phone] (Work) Social History Tobacco Use Types Packs/Day [...] on file documented as of this encounter Functional Status [...] Assessment Author Status No 06/12/2021 11:12 AM Juan Jose Alford RN Active * Do you have difficulty dressing or bathing? Answer Date of Assessment Author Status No 06/12/2021 11:12 AM Juan Jose Alford RN Active * Because of a physical, mental, or emotional condition, do you have difficulty doing errands alone such as visiting a doctor's office or shopping? Answer Date of Assessment Author Status No 06/12/2021 11:12 AM Juan Jose Alford RN Active documented as of this encounter Mental Status * Because of a physical, mental, or emotional condition, do you have serious difficulty concentrating, remembering, or making decisions? Answer Entry Date Author Status No 06/12/2021 11:12 AM Juan Jose Alford RN Active documented in this encounter Plan of Treatment Not on file documented as of this encounter Goals Goal Patient Goal Type Associated Problems Recent Progress Patient-Stated? Author Patient will return to prior living situation and remain independent in ADLs upon discharge from hospital [facility] No Jaclyn Escoto RN documented as of this encounter Visit Diagnoses Diagnosis Facet arthropathy, cervical- Primary Cervical spondylosis without myelopathy documented in this encounter Care Teams Shrimp Header Relationship Specialty Start Date End Date Khai Doe MD [address] [place] [address] [address] [place] [address] PCP - General INTERNAL MEDICINE 05/28/21 Dmitry Huber MD [address] [address] Consulting Physician CARDIOVASCULAR DISEASE 05/28/21 documented as of this encounter
--- OUTSIDE RECORDS SUMMARY | 2025-07-05 02:11 | XMS_ITS | Encounter Summary ---
Author Organization [facility] Address 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
--- OUTSIDE RECORDS SUMMARY | 2025-07-05 02:11 | XMS_ITS | Clinical Summary ---
Author Organization [facility] Address [address] [place] [address] Phone Care Team Providers Care Operations Accountant Name Role Phone Francesco Alcantara MD Primary Care Provider Unavaila ble Allergies Active Allergy Reactions Criticality Noted Date Comments Clindamycin Hcl Rash Low 12/01/2009 Medications PROMETRIUM 100 MG CAP 1 Every Morning 30.00 0 12/17/2005 Active FOLIC ACID 1 MG TAB 1 Every Morning 30.00 0 12/17/2005 Active RADHIKA 250 250 MG TAB 3 Every Day 90.00 0 12/17/2005 Active Active Problems Problem Noted Date Diagnosed Date Cirrhosis of liver without mention of alcohol Immunizations Immunization Administration Dates Next Due (HAVRIX/VAQTA)(19 YRS UP) HE PATITIS A VACCINE ADULT DOSAGE 1 ML IMM 10/07/2005,04/08/2005,11/28/1992 (RECOMBIVAX HB/ENGERIX-B)(11 YR UP) HEPATITIS B VACCINE 10 MCG/1 ML OR 20 MCG/1 ML ADOL OR ADULT 2 - 3 DOSE PF, IM 11/28/1992 Social History Tobacco Use Types Packs/Day Years Used Date Smoking Tobacco: Never Alcohol Use Standard Drinks/Week Comments No 0 (1 standard drink = 0.6 oz pur e alcohol) Comments Unknown Sex and Gender Information Value Date Recorded Sex Assigned at Not on file Legal Sex Female 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 Gender Identity Not on file Sexual Orientation Not on file Last Filed Vital Signs Vital Sign Reading Time Taken Comments Blood Pressure 120/68 12/08/2009 9:00 PM MULTIPLE CUT OFF SAW OPERATOR Pulse 109 12/08/2009 9:00 PM MULTIPLE CUT OFF SAW OPERATOR Temperature 37.2 C (99 F) 12/08/2009 9:00 PM MULTIPLE CUT OFF SAW OPERATOR Respiratory Rate 18 12/08/2009 9:00 PM MULTIPLE CUT OFF SAW OPERATOR Oxygen Saturation 97% 12/08/2009 9:00 PM MULTIPLE CUT OFF SAW OPERATOR Inhaled Oxygen Concentration - - Weight 52.2 kg (115 lb) 12/01/2009 10:15 AM MULTIPLE CUT OFF SAW OPERATOR Height 168.9 cm (5' 6.5) 12/01/2009 10:15 AM CS T Body Mass Index 18.28 12/01/2009 10:15 AM MULTIPLE CUT OFF SAW OPERATOR Plan of Treatment Health Maintenance Due Date Last Done Comments DTAP/TDAP/TD VACCINES (1 - Tdap) 1989 HPV/Cotest (21-29) 1991 HEPATITIS B VACCINES (2 of 3 - 19+ 3-dose series) 11/2911/28/1992 CERVICAL CANCER SCREENING 2000 HPV/Cotest (30-65) 2000 PAP SMEAR 2000 BREAST CANCER SCREENING 2010 COLORECTAL SCREENING 2015 Colorectal Cancer Screening 2015 FIT-DNA Q 3 years 2015 FIT/FOBT Q 1 year 2015 Flex Sig/CT Colonography Q 5 years 2015 ZOSTER VACCINE (1 of 2) 2020 INFLUENZA VACCINE (#1) 2025 Insurance [employer] ACCESS CHOICE Advance Directives For more information, please contact: [phone] * Full Code (Latest Code Status on File) Date Activated Date Inactivated Comments 12/08/2009 6:18 PM 12/09/2009 2:02 AM * Full Code Date Activated Date Inactivated Comments 12/08/2009 12:27 PM 12/08/2009 6:18 PM * Full Code Date Activated Date Inactivated Comments 12/08/2009 10:48 AM 12/08/2009 12:27 PM Care Teams Operations Accountant Relationship Specialty Start Date End Date Francesco Alcantara MD PCP - General 12/08/09
--- OUTSIDE RECORDS SUMMARY | 2025-07-05 02:11 | XMS_ITS | Encounter Summary ---
Author Organization [facility] Address [address] [place] [address] Care Team Providers Care Medical Reception Specialist Name Role Phone Khai Doe MD Primary Care Provider [phone] Dmitry Huber MD Unavailable [phone] Encounter Details Date Type Department Care Team (Late st Contact Info) Description 06/18/2021 Hospital Follow-up Call [facility] [place] [address] Rebeka Dela Cruz RN Social History Tobacco Use Types Packs/Day Years [...] Exposure Response Date Recorded In the last month, have you been in contact with someone who was confirmed or suspected to have Coronavirus / COVID-19? No / Unsure 06/18/2021 9:39 AM CDT documented as of this encounter [...] on filedocumented in this encounter Care Teams Medical Reception Specialist Relationship Specialty Start Date End Date Khai Doe MD [address] [place] [address] [address] [place] [address] PCP - General INTERNAL MEDICINE 05/28/21 Dmitry Huber MD [address] [address] Consulting Physician CARDIOVASCULAR DISEASE 05/28/21 documented as of this encounter
--- OUTSIDE RECORDS SUMMARY | 2025-07-05 02:11 | XMS_ITS | Encounter Summary ---
Author Organization [facility] Address [address] [place] [address] Care Team Providers Care Manager Psychiatry Name Role Phone Francesco Alcantara MD Primary Care Provider Unavaila ble Encounter Details Date Type Department Care Team (Late st Contact Info) Description 03/31/2004 Outpatient Historical [facility] Maternal and Ground Floor [address] [place] [address] Anibal Betancur MD [address] [facility] [address] [place] [address] Social History Tobacco Use Types Packs/Day Years Used Date Smoking Tobacco: Never Assessed Comments Unknown Sex and Gender Information Value Date Recorded Sex Assigned at Not on file Legal Sex Female 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
--- OUTSIDE RECORDS SUMMARY | 2025-07-05 02:11 | XMS_ITS | Encounter Summary ---
Author Organization [facility] Address [address] [place] [address] Care Team Providers Care Float Builder Name Role Phone Francesco Alcantara MD Primary Care Provider Unavaila ble Encounter Details Date Type Department Care Team (Latest Contact Info) Description 11/01/2002 Outpatient Historical HIS [facility] Renato Bui MD [address] [facility] [address] [place] [address] OVARIAN DYSFUNCTION NOS (Primary Dx) Social History Tobacco Use Types Packs/Day Years Used Date Smoking Tobacco: Never Assessed Comments Unknown Sex and Gender Information Value Date Recorded Sex Assigned at Not on file Legal Sex Female 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
--- OUTSIDE RECORDS SUMMARY | 2025-07-05 02:11 | XMS_ITS | Encounter Summary ---
Author Organization [facility] Address [address] [place] [address] Care Team Providers Care Microelectronics Technician Name Role Phone Francesco Alcantara MD Primary Care Provider Unavaila ble Encounter Details Date Type Department Care Team (Late st Contact Info) Description 02/04/2004 Outpatient Historical [facility] Internal Medicine [address] [place] [address] Jefferson [place] MD NO ADDRESS ON FILE Social History Tobacco Use Types Packs/Day Years Used Date Smoking Tobacco: Never Assessed Comments Unknown Sex and Gender Information Value Date Recorded Sex Assigned at Not on file Legal Sex Female 4:20 AM FINISHER POLISHER Gender Identity Not on file Sexual Orientation Not on file documented as of this encounter Plan of Treatment Not on file documented as of this encounter Visit Diagnoses Not on filedocumented in this encounter Care Teams Microelectronics Technician Relationship Specialty Start Date End Date Francesco Alcantara MD PCP - General 12/08/09 documented as of this encounter
--- OUTSIDE RECORDS SUMMARY | 2025-07-05 02:11 | XMS_ITS | Encounter Summary ---
Author Organization [facility] Address [address] [place] [address] Care Team Providers Care Telephone Answering Service Operator Name Role Phone Francesco Alcantara MD Primary Care Provider Unavaila ble Encounter Details Date Type Department Care Team (Latest Contact Info) Description 04/23/2003 Outpatient Historical HIS [facility] Renato Bui MD [address] [facility] [place] [address] [place] [address] OVARIAN DYSFUNCTION NOS (Primary Dx) Social History Tobacco Use Types Packs/Day Years Used Date Smoking Tobacco: Never Assessed Comments Unknown Sex and Gender Information Value Date Recorded Sex Assigned at Not on file Legal Sex Female 4:20 AM 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
--- OUTSIDE RECORDS SUMMARY | 2025-07-05 02:11 | XMS_ITS | Encounter Summary ---
Author Organization [facility] Address [address] [place] [address] Care Team Providers Care Acid Etch Operator Name Role Phone Francesco Alcantara MD Primary Care Provider Unavaila ble Encounter Details Date Type Department Care Team (Late st Contact Info) Description 10/13/[address] [facility] Internal Medicine [address] [place] [address] Jefferson [place] MD NO ADDRESS ON FILE Social History Tobacco Use Types Packs/Day Years Used Date Smoking Tobacco: Never Assessed Comments Unknown Sex and Gender Information Value Date Recorded Sex Assigned at Not on file Legal Sex Female 4:20 AM OCULARIST Gender Identity Not on file Sexual Orientation Not on file documented as of this encounter Plan of Treatment Not on file documented as of this encounter Visit Diagnoses Not on filedocumented in this encounter Care Teams Acid Etch Operator Relationship Specialty Start Date End Date Francesco Alcanatra MD PCP - General 12/08/09 documented as of this encounter
--- OUTSIDE RECORDS SUMMARY | 2025-07-05 02:11 | XMS_ITS | Encounter Summary ---
Author Organization [facility] Address [address] [place] [address] Care Team Providers Care Manager Life Insurance Name Role Phone Francesco Alcantara MD Primary Care Provider Unavaila ble Encounter Details Date Type Department Care Team (Late st Contact Info) Description 03/01/2005 Outpatient Historical HIS [facility] T[facility] Baptiste, Carlos Todd MD [address] [address] ELEV TRANSAMINASE/LDH (Primary Dx) Social History Tobacco Use Types Packs/Day Years Used Date Smoking Tobacco: Never Assessed Comments Unknown Sex and Gender Information Value Date Recorded Sex Assigned at Not on file Legal Sex Female 4:20 AM LOCATION DIRECTOR Gender Identity Not on file Sexual Orientation Not on file documented as of this encounter Plan of Treatment Not on file documented as of this encounter Procedures Procedure Name Priority Date/Time Associated Diagnosis Comments HEPATITIS B SURFACE AB, QUAL Routine 03/01/2005 12:32 PM CDT HEPATITIS B SURFACE ANTIGEN Routine 03/01/2005 12:32 PM CDT SMOOTH MUSCLE ANTIBODY Routine 5 12:32 PM CDT MITOCHONDRIAL ANTIBODY Routine 5 12:32 PM CDT HEPATITIS C ANTIBODY Routine 03/01/2005 12:32 PM CDT HEPATITIS A IGM Routine 03/01/2005 12:32 PM CDT CERULOPLASMIN Routine 03/01/2005 12:32 PM CDT ALPHA 1 ANTITRYPSIN Routine 03/01/2005 1 2:32 PM CDT SAMI SCREEN W/REFLEX Routine 03/01/2005 1 2:32 PM CDT IRON, TIBC, AND PERCENT SATURATION Routine 03/01/2005 12:00 PM CDT HEPATIC FUNCTION PANEL Routine 5 12:00 PM CDT documented in this encounter Results * ALPHA 1 ANTITRYPSIN (03/01/2005 12:32 PM CDT) ALPHA 1 ANTITRYPSIN 128 83 - 199 mg/dL INTERFACE SYSTEM Comment: Lab test performed by: [facility] [address] AUSTEN LEGER MD 03/01/2005 12:3 2 PM CDT Carlos Baptiste MD CHEMISTRY ORDERABLES Fin al Result Performing Organization Address [facility] Co de Phone Number INTERFACE SYSTEM Refer to clinic/hospital department * CERULOPLASMIN (03/01/2005 12:32 PM CDT) CERULOPLASMIN 34 18 - 53 mg/dL INTERFACE SYSTEM Comment: Lab test performed by: [facility] [address] AUSTEN LEGER MD 03/01/2005 12:3 2 PM CDT Carlos Baptiste MD CHEMISTRY ORDERABLES Fin al Result Performing Organization Address [facility] Co de Phone Number INTERFACE SYSTEM Refer to clinic/hospital department * SMOOTH MUSCLE ANTIBODY (03/01/2005 12:32 PM CDT) SMOOTH MUSCLE AB <1:20 Titer INT ERFACE SYSTEM Comment: REFERENCE RANGE: <1:20 NEGATIVE. 1:20 TO 1:40 WEAKLY POSITIVE. MAY BE PRESENT IN ACUTE VIRAL HEPATITIS, LUPOID HEPATITIS, INFECTIOUS MONONUCLEOSIS AND MALIGNANCY. >1:40 HIGH POSITIVE. HIGHLY SUGGESTIVE OF ACTIVE CHRONIC HEPATITIS. Lab test performed by: [facility] [address] AUSTEN LEGER MD 03/01/2005 12:3 2 PM CDT Carlos Baptiste MD CHEMISTRY ORDERABLES COM Final Result Performing Organization Address [facility] de Phone Number INTERFACE SYSTEM Refer to clinic/hospital department * (ABNORMAL) MITOCHONDRIAL ANTIBODY (03/01/2005 12:32 PM CDT) Pathologist [facility] MITOCHONDRIAL AB 1:160(H) Titer INT ERFACE SYSTEM Comment: REFERENCE RANGE: <1:20 NEGATIVE. 1:20 TO 1:80 INTERMEDIATE LEVEL. MAY BE PRESENT IN AUTOALLERGIC OR OTHER LIVER DISEASES. >1:80 ELEVATED LEVEL. STRONGLY SUGGESTIVE OF PRIMARY BILIARY CIRRHOSIS Lab test performed by: [facility] [address]Apoorva LEGER MD 03/01/2005 12:3 2 PM CDT Carlos Baptiste MD CHEMISTRY ORDERABLES Fin al Result Performing Organization Address [facility] Phone Number INTERFACE SYSTEM Refer to clinic/hospital department * HEPATITIS C ANTIBODY (03/01/2005 12:32 PM CDT) Pathologist [facility] HEPATITIS C AB NON-REACT PIA NON-REACT PIA INTERFACE SYSTEM Comment: Lab test performed by: [facility] [address] AUSTEN LEGER MD 03/01/2005 12:3 2 PM CDT Carlos Baptiste MD CHEMISTRY ORDERABLES Fin al Result Performing Organization Address [facility] Co de Phone Number INTERFACE SYSTEM Refer to clinic/hospital department * HEPATITIS B SURFACE ANTIGEN (03/01/2005 12:32 PM CDT) HEPATITIS B SURFACE AG NON-REACT PIA NON-REACT PIA INTERFACE SYSTEM Comment: Lab test performed by: [facility] [address] AUSTEN LEGER MD 03/01/2005 12:3 2 PM CDT Carlos Baptiste MD CHEMISTRY ORDERABLES Fin al Result Performing Organization Address [facility] Phone Number INTERFACE SYSTEM Refer to clinic/hospital department * HEPATITIS B SURFACE AB (03/01/2005 12:32 PM CDT) Pathologist [facility] HEPATITIS B SURFACE AB 19 mIU/mL INTERFACE SYSTEM Comment: ACCORDING TO CURRENT CDC GUIDELINES, VALUES GREATER THAN OR EQUAL TO 10 MIU/ML INDICATE IMMUNITY. Lab test performed by: [facility] [address] AUSTEN LEGER MD 03/01/2005 12:3 2 PM CDT Carlos Baptiste MD CHEMISTRY ORDERABLES Fin al Result Performing Organization Address [facility] Phone Number INTERFACE SYSTEM Refer to clinic/hospital department * HEPATITIS A IGM (03/01/2005 12:32 PM CDT) HEPATITIS A IGM NON-REACT PIA NON-REACT PIA INTERFACE SYSTEM Comment: Lab test performed by: [facility] [address] AUSTEN LEGER MD 03/01/2005 12:3 2 PM CDT Carlos Baptiste MD CHEMISTRY ORDERABLES Fin al Result Performing Organization Address [facility] Phone Number INTERFACE SYSTEM Refer to clinic/hospital department * (ABNORMAL) SAMI (03/01/2005 12:32 PM CDT) SAMI SCREEN POSITIVE( A) NEGATIVE INTERFACE SYSTEM SAMI PATTERN CENTROMER E(A) INTERFACE SYSTEM Comment: THE ANTI-CENTROMERE ANTIBODY (JO) IS A TYPE OF ANTINUCLEAR ANTIBODY THOUGHT TO BE SPECIFICALLY ASSOCIATED WITH THE CREST VARIANT OF SCLERODERMA. PATIENTS WITH THE CREST SYNDROME GENERALLY HAVE LESS EXTENSIVE CUTANEOUS SCLEROSIS, LESS SYSTEMIC INVOLVEMENT WITH SCLERODERMA, A SLOW RATE OF PROGRESSION OF DISEASE, AND A RELATIVELY GOOD PROGNOSIS COMPARED WITH OTHER PATIENTS WITH SCLERODERMA WHO HAVE MORE SYSTEMIC INVOLVEMENT. THUS, THE PRESENCE OF JO IN THE SERUM COULD BE A USEFUL PROGNOSTIC INDICATOR IN PATIENTS WITH EARLY SCLERODERMA. LITERATURE REPORTS INDICATE AN INDEPENDENCE OF JO TITER FROM DISEASE ACTIVITY; THAT IS, TITERS OF JO TEND TO REMAIN HIGH AND DO NOT FLUCTUATE RELATIVE TO DISEASE ACTIVITY. SAMI TITER (A) INTERFACE SYSTEM Comment: REFERENCE RANGE: <1:40 NEGATIVE 1:40 - 1:80 LOW ANTIBODY LEVEL >1:80 ELEVATED ANTIBODY LEVEL Lab test performed by: [facility] [address] AUSTEN LEGER MD > OR EQUAL TO 1:640 03/01/2005 12:3 2 PM CDT Carlos Baptiste MD CHEMISTRY ORDERABLES Fin al Result Performing Organization Address [facility] de Phone Number INTERFACE SYSTEM Refer to clinic/hospital department * IRON AND TIBC (03/01/2005 12:00 PM CDT) IRON 67 37 - 160 ug/dL INTERFACE SYSTEM IRON % SATURATION 21 15 - 50 % INTERFACE SYSTEM TIBC 319 250 - 450 ug/dL INTERFACE SYSTEM 03/01/2005 12:0 0 PM CDT Carlos Baptiste MD CHEMISTRY ORDERABLES Fin al Result Performing Organization Address [facility] de Phone Number INTERFACE SYSTEM Refer to clinic/hospital department * (ABNORMAL) HEPATIC FUNCTION PANEL (03/01/2005 12:00 PM CDT) AST 55(H) 12 - 32 U/L INTERFACE SYSTEM ALKALINE PHOSPHATASE 211(H) 35 - 104 U/L INTERFACE SYSTEM BILIRUBIN TOTAL 0.7 0.2 - 1.0 mg/dL INTERFACE SYSTEM ALBUMIN 4.8 3.4 - 4.8 g/dL INTERFACE SYSTEM TOTAL PROTEIN 7.6 6.3 - 8.6 g/dL INTERFACE SYSTEM Comment: Testing was performed on Serum. Specimen of choice is [place] Heparinized Plasma. Serum TP Ref. Range: 3 years - 150 years 6.0 - 8.3 g/dL 1 year - 3 years 5.6 - 7.5 g/dL 7 days - 1 year 4.7 - 7.3 g/dL 0 days - 7 days 4.4 - 7.6 g/dL performed at doctor's request ALT 66(H) 0 - 31 U/L INTERFACE SYSTEM BILIRUBIN DIRECT 0.1 0.0 - 0.3 mg/dL INTERFACE SYSTEM 03/01/2005 12:0 0 PM CDT Carlos Baptiste MD CHEMISTRY ORDERABLES Fin al Result INTERFACE SYSTEM Refer to clinic/hospital department documented in this encounter Visit Diagnoses Diagnosis Nonspecific elevation of levels of transaminase or lactic acid dehydrogenase (LDH)- Primary documented in this encounter Care Teams Manager Life Insurance Relationship Specialty Start Date End Date Francesco Alcantara MD PCP - General 12/08/09 documented as of this encounter
--- OUTSIDE RECORDS SUMMARY | 2025-07-05 02:11 | XMS_ITS | Encounter Summary ---
Author Organization [facility] Address [address] [place] [address] Care Team Providers Care Die Reamer Name Role Phone Francesco Alcantara MD Primary Care Provider Unavaila ble Encounter Details Date Type Department Care Team (Late st Contact Info) Description 10/07/2005 Outpatient Historical [facility] Internal Medicine [address] [place] [address] Jefferson [place] MD NO ADDRESS ON FILE Social History Tobacco Use Types Packs/Day Years Used Date Smoking Tobacco: Never Assessed Comments Unknown Sex and Gender Information Value Date Recorded Sex Assigned at Not on file Legal Sex Female 4:20 AM CERTIFIED NURSE MIDWIFE Gender Identity Not on file Sexual Orientation Not on file documented as of this encounter Plan of Treatment Not on file documented as of this encounter Visit Diagnoses Not on filedocumented in this encounter Care Teams Die Reamer Relationship Specialty Start Date End Date Francesco Alcantara MD PCP - General 12/08/09 documented as of this encounter
--- OUTSIDE RECORDS SUMMARY | 2025-07-05 02:11 | XMS_ITS | Encounter Summary ---
Author Organization [facility] Address [address] [place] [address] Care Team Providers Care Water Purification Chemist Name Role Phone Francesco Alcantara MD Primary Care Provider Unavaila ble Encounter Details Date Type Department Care Team (Latest Contact Info) Description 03/31/2004 Outpatient Historical [facility] Anibal Betancur MD [address] [facility] [address] [place] [phone] PREG W HX OF INFERTILITY (Primary Dx) Social History Tobacco Use Types Packs/Day Years Used Date Smoking Tobacco: Never Assessed Comments Unknown Sex and Gender Information Value Date Recorded Sex Assigned at Not on file Legal Sex Female 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
--- OUTSIDE RECORDS SUMMARY | 2025-07-05 02:11 | XMS_ITS | Encounter Summary ---
Author Organization [facility] Address [address] [place] [id number] Care Team Providers Care Rat Farmer Name Role Phone Khai Doe MD Primary Care Provider [phone] Dmitry Huber MD Unavailable [phone] Reason for Referral * Surgical (Routine) - Closed Specialty Diagnoses / Procedures Referred By Judy paige Referred To Contact Procedures Case request operating room: INJECTION FACET JOINT C4-5, C5-6 Ligia Wilkins NP [address] [facility] [address] [place] [address] Phone: tel: [phone] fax: Referral ID Status Reason Start Date Expiration Date Visits Re quested Visits Authorized [id number] Closed 02/22/2022 03/25/2023 1 1 Encounter Details Date Type Department Care Team (Late st Contact Info) Description 02/22/2022 Prep for Procedure [facility] [place] [address] [id number] Ligia Wilkins NP [address] [facility] [address] [place] [phone] (Work) Social History Tobacco Use Types Packs/Day [...] suspected to have Coronavirus/COVID-19? No / Unsure 02/17/2022 12:32 PM CDT documented as of this encounter Functional [...] request operating room: INJECTION FACET JOINT C4-5, C5-6 Case Request Routine Once for 1 Occu rrences starting 02/22/2022 until 02/22/2022 documented as of this encounter Goals Goal Patient Goal Type Associated Problems Recent Progress Patient-Stated? Author Patient will return to prior living situation and remain independent in ADLs upon discharge from hospital General No Heidke, Jaclyn M, RN documented as of this encounter Visit Diagnoses Not on filedocumented in this encounter Care Teams Rat Farmer Relationship Specialty Start Date End Date Khai Doe MD [address] [facility] [address] [place] [address] PCP - General INTERNAL MEDICINE 05/28/21 Dmitry Huber MD 3 [facility] [address] [place] [phone] Consulting Physician CARDIOVASCULAR DISEASE 05/28/21 documented as of this encounter
--- OUTSIDE RECORDS SUMMARY | 2025-07-05 02:11 | XMS_ITS | Encounter Summary ---
Author Organization [facility] Address [address] [place] [address] Care Team Providers Care Outside Dealer Sales Representative Name Role Phone Francesco Alcantara MD Primary Care Provider Unavaila ble Encounter Details Date Type Department Care Team (Late st Contact Info) Description 04/05/2005 Outpatient Historical HIS [facility] Baptiste, Carlos Todd MD [address] [place] [phone] ELEV TRANSAMINASE/LDH (Primary Dx) Social History Tobacco Use Types Packs/Day Years Used Date Smoking Tobacco: Never Assessed Comments Unknown Sex and Gender Information Value Date Recorded Sex Assigned at Not on file Legal Sex Female 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 Gender Identity Not on file Sexual Orientation Not on file documented as of this encounter Plan of Treatment Not on file documented as of this encounter Procedures Procedure Name Priority Date/Time Associated Diagnosis Comments HEPATIC FUNCTION PANEL Routine 04/05/2005 9:38 AM CDT documented in this encounter Results * (ABNORMAL) HEPATIC FUNCTION PANEL (04/05/2005 9:38 AM CDT) AST 35(H) 12 - 32 U/L INTERFACE SYSTEM ALKALINE PHOSPHATASE 143(H) 35 - 104 U/L INTERFACE SYSTEM BILIRUBIN TOTAL 0.6 0.2 - 1.0 mg/dL INTERFACE SYSTEM ALBUMIN 4.6 3.4 - 4.8 g/dL INTERFACE SYSTEM TOTAL PROTEIN 7.3 6.3 - 8.6 g/dL INTERFACE SYSTEM ALT 33(H) 0 - 31 U/L INTERFACE SYSTEM BILIRUBIN DIRECT 0.1 0.0 - 0.3 mg/dL INTERFACE SYSTEM 04/05/2005 9:38 AM CDT Carlos Baptiste MD CHEMISTRY ORDERABLES Fin al Result INTERFACE SYSTEM Refer to clinic/hospital department documented in this encounter Visit Diagnoses Diagnosis Nonspecific elevation of levels of transaminase or lactic acid dehydrogenase (LDH)- Primary documented in this encounter Care Teams Outside Dealer Sales Representative Relationship Specialty Start Date End Date Francesco Alcantara MD PCP - General 12/08/09 documented as of this encounter
--- OUTSIDE RECORDS SUMMARY | 2025-07-05 02:11 | XMS_ITS | Clinical Summary ---
Author Organization [facility] Address [address] [place] [id number] Care Team Providers Care Technical Documentation Specialist Name Role Phone Khai Doe MD Primary Care Provider [phone] Dmitry Huber MD Unavailable [phone] Allergies Active Allergy Reactions Criticality Noted Date Comments Clindamycin Rash Low 01/25/2019 Medications lamoTRIgine 100 MG tablet Take 100 mg by mouth nightly at bedtime. Active rosuvastatin 20 MG tablet Take 20 mg by mouth daily. 1 Active aspirin EC (ECOTRIN) 81 MG tablet Take 81 mg by mouth daily. Active DULoxetine 60 MG capsule 1 Active amLODIPine 5 MG tablet amlodipine 5 mg tablet 1 tablet one time a day 1 Active isosorbide dinitrate 30 MG tablet every 12 (twelve) hours. Active ursodiol (ACTIGALL) 250 MG tablet Take 250 mg by mouth. Active levothyroxine (SYNTHROID) 25 MCG tablet TAKE 1 TABLET EVERY DAY BY ORAL ROUTE IN THE MORNING. 2 Active progesterone (PROMETRIUM) 100 MG capsule Take 100 mg by mouth daily. Active spironolactone (ALDACTONE) 100 MG tablet TAKE 1 TABLET BY MOUTH EVERY DAY IN THE MORNING FOR PREVENTION OF ACNE, FACIAL HAIR,SWELLING 2 Active Testosterone Powder 2 Active rosuvastatin (CRESTOR) 20 MG tablet Take 1 tablet by mouth daily. 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) 04/05/2005 Overview (06/11/2021): Last Assessment & Plan: Good control on bile acid therapy. This has kept her liver biochemistries in the normal range. A normal alkaline phosphatase has been associated with excellent long-term survival. I will recheck her labs within the next few weeks. She will return on an annual basis or when clinically indicated. Asthma ([facility]) Immunizations Immunization Administration Dates Next Due Flucelvax 2 YRS+ (Multi-Dose Vial) 09/21/2020 Hepatitis A (Generic) 10/07/2005,04/08/2005,11/1992 Hepatitis B (Generic: Adult) 11/28/1992 Influenza Adult (Generic) 10/09/2019,08/17/2017, 09/28/2016 MODERNA COVID-19 (12+) MRNA, LNP-S, PF, 100 MCG/ 0.5 ML DOSE 01/12/2021,12/15/2020 Family History Medical History Relation Comments Stroke Father Depression Maternal Grandmother Diabetes Maternal Grandmother Hyperlipidemia Maternal Grandmother Hyperlipidemia Mother Relation Status Comments Father Other Maternal Grandmother Mother Alive Social History Tobacco Use Types Packs/Day Years [...] Sign Reading Time Taken Comments Blood Pressure 111/74 10/15/2024 1:30 PM WEIGHT ANALYST Pulse 83 10/15/2024 1:30 PM WEIGHT ANALYST Temperature 36.9 C (98.4 F) 10/15/2024 10:48 AM WEIGHT ANALYST Respiratory Rate 19 10/15/2024 1:30 PM WEIGHT ANALYST Oxygen Saturation 99% 10/15/2024 1:30 PM WEIGHT ANALYST Inhaled Oxygen Concentration - - Weight 52.2 kg (115 lb) 10/15/2024 10:48 AM WEIGHT ANALYST Height 167.6 cm (5' 6) 10/15/2024 10:48 AM WEIGHT ANALYST Body Mass Index 18.56 10/15/2024 10:48 AM WEIGHT ANALYST Plan of Treatment Health Maintenance Due Date Last Done Comments Cervical Cancer Screening Pap Smear (Age 30 to 64) Every 3 Years 1970 Colorectal Cancer Screening Colonoscopy (10 Years) 1970 Annual Physical 1973 Hepatitis C 1988 DTaP, Tdap and Td Vaccines (1 - Tdap) 1989 Pneumococcal Vaccine: 50+ Years (1 of 2 - PCV) 1989 Hepatitis B Vaccines (2 of 3 - 19+ 3-dose series) 12/26/1992 11/28/1992 Cervical Cancer Screening Pap with HPV Testing (Age 30 to 64) Every 5 Years 2000 Cervical Cancer Screening with HPV 2000 Zoster Vaccines (1 of 2) 2020 ASCVD LDL 06/18/2022 06/18/2021, 06/11/2021 COVID-19 Vaccine ( season) 2024 01/12/2021, 12/15/2020 PHQ-2 (Physician [place]) 11/28/2024 Mammogram Screening 08/21/2026 08/21/2024, 07/07/2023, 04/09/2022, Additional history exists Meningococcal B Vaccine Aged Out No l onger eligible based on patient's age to complete this topic Meningococcal Vaccine Aged Out No carlita dory eligible based on patient's age to complete this topic RSV Immunizations Under 20 Months Aged Out No longer eligible based on patient's age to complete this topic Goals Goal Patient Goal Type Associated Problems Recent Progress Patient-Stated? Author Patient will return to prior living situation and remain independent in ADLs upon discharge from [facility] Jaclyn Hall RN Procedures Procedure Name Priority Date/Time Associated Diagnosis Comments LIPID PANEL Routine 06/18/2021 11:15 AM CDT NSTEMI (non-ST elevated myocardial infarction) Dyslipidemia from Last 3 Months or Most Recently Relevant to Health Maintenance Results * LIPID PANEL (06/18/2021 11:15 AM CDT) CHOLESTEROL 165 <200 MG/DL 06/18/2021 11:58 AM CDT [facility] TRIGLYCERIDES 65 <150 MG/DL 06/18/2021 11:58 AM T [facility] HDL 95 >40.0 MG/DL 06/18/2021 11:58 AM CDT [facility] LDL (CALCULATED) 57 <100 MG/DL 06/18/20 11:58 AM CDT [facility] NON HDL CHOLESTEROL 70 <130 MG/DL 06/18 11:58 AM T [facility] CHOL/HDL RATIO 1.7 0.0 - 4.5 06/18/2021 11:58 AM T [facility] VLDL CALCULATION 13 5 - 55 MG/DL 06/18/2021 11:58 AM T [facility] LIPID INTERPRETATION 06/18/2021 11:58 AM T [facility] Comment: NIH CONCENSUS REPORT RECOMMENDATIONS: ADULT CHILD LOW RISK: CHOLESTEROL <200 <170 TRIGLYCERIDE <150 --- HDL >=60 --- LDL <100 <110 BORDERLINE: CHOLESTEROL 200-239 170-199 TRIGLYCERIDE 150-199 --- HDL 40-59 --- LDL 100-159 110-129 HIGH RISK: CHOLESTEROL >=240 >=200 TRIGLYCERIDE >=200 --- HDL <40 --- LDL >=160 >=130 06/18/2021 11:1 5 AM CDT Dmitry Huber MD LABORATORY Final Result [facility] [address] [place] [address], from Last 3 Months or Most Recently Relevant to Health Maintenance [place] [place] [address] [facility] Advance Directives * Full Code (Latest Code Status on File) Date Activated Date Inactivated Comments 06/11/2021 1:19 PM 06/12/2021 2:08 PM * Full Code Date Activated Date Inactivated Comments 06/11/2021 9:27 AM 06/11/2021 1:19 PM Care Teams Technical Documentation Specialist Relationship Specialty Start Date End Date Khai Doe MD [address] [facility] [address] [place] [address] PCP - General INTERNAL MEDICINE 05/28/21 Dmitry Huber MD [address] [facility] [address] [place] [address] Consulting Physician CARDIOVASCULAR DISEASE 05/28/21
--- NOTE | 2025-07-05 08:14 | P.PNAN_ITS ---
Anes - Initial Pre Proc Eval Procedure: Operation Date: 07/05/25 12:00 Proposed Procedures p Bilateral Breast Implant Exchange - Jaspal Matute MD Date/Time: 07/05/25 08:14 Surgeon: Jaspal Matute MD Pre Op Diagnosis: hx of breast augmentation Patient Data Age: 54 Gender: F Height: 1.68 m Weight: 52.3 kg Allergies Allergy/AdvReac Type Severity Reaction Status Date / Time clindamycin Allergy Unknown Rash Verified 06/28/25 09:00 Home Medications ?Medication ?Instructions ?Recorded ?Confirmed ?Type amlodipine 2.5 mg tablet 5 mg PO DAILY 01/26/22 06/28/25 History isosorbide mononitrate 30 mg 30 mg PO DAILY 01/26/22 06/28/25 History tablet,extended release 24 hr rosuvastatin 20 mg tablet 20 mg PO DAILY 01/26/22 06/28/25 History ursodiol 250 mg tablet 750 mg PO DAILY 01/26/22 06/28/25 History fluticasone fur. 200 mcg-umeclid 1 inh inhalation DAILY 06/28/25 06/28/25 History 62.5 mcg-vilant 25 mcg inhalat.powder (Trelegy Ellipta) hydroxychloroquine 200 mg tablet 200 mg PO DAILY 06/28/25 06/28/25 History thyroid (pork) 15 mg tablet (YARD CONDUCTOR 15 mg PO DAILY 06/28/25 06/28/25 History Thyroid) Patient hx anesthesia problems: none Family hx anesthesia problems: none Results Review: All pre-operative results and documents have been reviewed as part of the pre- operative evaluation. [facility] Past Medical History Medical History (Updated 07/05/25 @ 10:44 by Munri Malcolm DO) Hypothyroidism Asthma History of heart attack related to vasospasm or covid vaccine, clean cath and echo Hyperlipidemia HTN (hypertension) Social History Social History Smoking status: Never smoker Alcohol intake: current Drinks per week: 2 Living arrangements: with family Spiritual care concerns: No Anes - Eval Final PreProcedure Day of Procedure 07/05/25 08:14 Patient weight: normal Heart: regular rate and rhythm Lungs: clear to auscultation Airway: Mallampati scale class II Neurological: alert and oriented Last oral intake: >/= 8 hours ASA classification: II Emergent: no Anesthetic plan: proceed Anesthesia type and monitoring: general LMA and standard monitoring Results Review: All pre-operative results and documents have been reviewed as part of the pre- operative evaluation. Informed Consent: The patient's anesthetic plan and its attendant risks and benefits were discussed with the patient/family/POA. Questions were solicited and answers provided to the satisfaction of the patient/family/POA.
[2025-07-05] MEDS: LACTATED RINGERS 1,000 ML 30 ML IV CONT ×3 (10:53→13:59)
[2025-07-05] MEDS: TRANEXAMIC ACID 1,000MG/ISO100 1,000 MG/100 ML BAG 200 MG IVPB (10:53)
--- NOTE | 2025-07-05 11:42 | WPDHPUPDATE1 ---
History and Physical Update Update Date/Time: 07/05/25 11:42 History and Physical has been reviewed, including an updated exam of the patient. There are NO changes in the patient's condition. Risks, benefits, and alternatives have been discussed and questions answered. Patient agrees to proceed with procedure.
--- NOTE | 2025-07-05 11:45 | P.OP_ITS ---
Procedure Note - Detailed Date of Procedure 07/05/25 Pre-op Diagnosis hx of breast augmentation Post-op Diagnosis Same Procedure Performed Bilateral breast implant exchange Surgeon Jaspal Matute MD Anesthesia General Indications She has elected to change approach to IMF approach understanding complexity of i dentifying symmetrically with left implant rupture. Findings Previous implants: Textured No worrisome features New implants: Bilateral Natrelle Saline 350cc filled to 360cc Right: REF# [id number] SN [id number] Left: REF# [id number] SN [id number] Description of Procedure Preoperatively the risks, benefits, alternatives were discussed in extensive detail. I wanted to be very realistic about the risks involved as well as expectations. I was clear about how we could actually make her worse. Answered all questions to satisfaction. Voiced a clear understanding. Consent obtained. She was taken the operating room placed supine on the operating room table. Anesthesia provided by anesthesiology and prepped and draped in a standard sterile fashion. Surgical time-out was taken. 1% lidocaine and 0.25% Marcaine with epinephrine was used to provide a field block. Tegaderm nipple ryder were placed. Fifteen blade used to make an IMF incision. Dissection was continued down until the capsules were identified and entered. No seroma. No worrisome features. Implants removed. I then copiously irrigated with 3 L of saline solution on TUR tubing. Verified strict hemostasis. Implant selection was made based on previous implants and comparable selection based on her goals. I then irrigated with Betadine containing solution. On the back table I prepped the implant to remove all air. It was introduced into the pocket and utilizing an implant fill kit filled to the volume above. The fill tubing was removed and I verified the valve sealed. This was closed with 2-0 PDS followed by 3-0 Monocryl and a running subcuticular 4-0 Monocryl followed by tissue glue. Dressings were placed. She was woken taken to the PACU without difficulty. All instrument sponge counts were correct at the end of the case. Estimated Blood Loss 20 Drains No Packing No Pathology None sent Complications No immediate complications Condition Stable Disposition PACU
[2025-07-05] MEDS: ceFAZolin 2 GM in SODIUM CHLORIDE 0.9% IV 50 ML 100 ML IVPB (11:59)
[2025-07-05] MEDS: NACL 0.9% IRRIG POUR BOTTLE 900 ML, GENTAMICIN SULFATE INJ 160 MG, ceFAZolin 2 GM, POVI... IRRIGATION (11:59)
[2025-07-05] MEDS: fentaNYL CITRATE INJ (*CRX) 100 MCG/2 ML VIAL 25 MCG IV PUSH ×2 (13:59→14:01)
[2025-07-05] MEDS: oxyCODONE HCL (*CRX) 5 MG TAB IR PO (15:21)
== END 2025-07-05 15:52 | disposition home or self-care (01) ==
PROVIDERS: PCP Internal Medicine; Visit Provider Surgery Plastic and Reconstructive Surgery
PROC: (CPT 19342; principal; 2025-07-05 12:00)
DX: Z41.1 Encounter for cosmetic surgery (principal); E78.5 Hyperlipidemia, unspecified; I10 Essential (primary) hypertension; E03.9 Hypothyroidism, unspecified; J45.909 Unspecified asthma, uncomplicated; K74.3 Primary biliary cirrhosis; D89.89 Other specified disorders involving the immune mechanism, not elsewhere classified; I25.2 Old myocardial infarction; Z79.51 Long term (current) use of inhaled steroids; Z79.891 Long term (current) use of opiate analgesic; Z98.890 Other specified postprocedural states
CPT/HCPCS: 19370; 19325; J0690; A9270; J1100; J1580; J2004; J2250; J2405; J2704; J3010; J7120